=== PATIENT | female | born 1950 | race Caucasian/White ===

== ENCOUNTER 2021-12-18 11:12 | Outpatient (CLI) | payer MEDICARE, SELFPAY ==
--- NOTE | 2021-12-18 11:23 | MM_ITS ---
WS: [id number] VIEWS: MLO and CC views both breasts. 3D digital tomosynthesis is also included in this exam. No comparisons. Findings: There is a 15 mm partially obscured nodular density seen in the anterior medial right breast near the 5:00 position. No architectural distortion or suspicious calcification. This may be a cyst. No other discrete lesions are noted in either breast. Scattered benign-appearing calcifications. Regional ult rasound of the right breast would be indicated for further workup.The breasts are heterogeneously de nse. MM/[place] [id number] Impression: BI-RADS: 0-Incomplete: Need additional imaging evaluation FOLLOW-UP: See Report This mammogram was also analyzed by the Computer Aided Detection System R2 Imag e Fan Balancer.
== END 2021-12-18 11:13 | disposition home or self-care (01) ==
LOC: RAD 11:20
PROVIDERS: Visit Provider Nurse Practitioner
DX: Z12.31 Encounter for screening mammogram for malignant neoplasm of breast (principal)
CPT/HCPCS: 77063; 77067

== ENCOUNTER 2022-01-16 09:56 | Outpatient (CLI) | payer MEDICARE, SELFPAY ==
--- NOTE | 2022-01-16 10:43 | US_ITS ---
WS: [id number] Exam: US breast RT limited* [id number] Date/Time of Exam: 01/16/2022 11:00 AM Reason For Exam: ABNORMAL MAMMOGRAM Regional ultrasound of the subareolar area of the right breast is performed. At the 5:00 position a hypoechoic solid ovoid nodule is noted measuring 1.08 x 0.66 x 0.8 cm. The nod ule is well-circumscribed. This corresponds to the nodular density described on recent baseline mammo graphy. No other discrete lesions are seen in this region. Several mildly dilated ducts noted. US/US breast RT limited* [id number] IMPRESSION: 1. 1.08 x 0.66 x 0.8 cm hypoechoic circumscribed solid nodule seen at the 5:00 position in the right breast. This corresponds to the nodule identified on rece nt baseline mammography. Although this may represent a benign lesion such as a fibroadenoma, ultrasound guided biopsy would be recommended for definitive diag nosis.
== END 2022-01-16 09:57 | disposition home or self-care (01) ==
LOC: RAD 10:03
PROVIDERS: PCP Nurse Practitioner Family; Visit Provider Nurse Practitioner Family
DX: N63.14 Unspecified lump in the right breast, lower inner quadrant (principal); R92.8 Other abnormal and inconclusive findings on diagnostic imaging of breast
CPT/HCPCS: 76642

== ENCOUNTER 2022-02-10 18:30 | Emergency (ER) | payer MEDICARE, SELFPAY ==
[2022-02-10 19:04] VITALS: BP 238/86; PULSE 66; RESP 17; TEMP 36.9; O2SAT 96; BMI 36.6
--- NOTE | 2022-02-10 19:09 | ECG_ITS ---
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 Measurements Intervals [place] Rate: 62 P: 67 NM: 242 QRS: 58 QRSD: 100 T: 47 QT: 408 QTc: 415 Interpretive Statements SINUS RHYTHM WITH FIRST DEGREE AV BLOCK POSSIBLE LEFT ATRIAL ENLARGEMENT [-0.1mV P-WAVE IN V1/V2] POSSIBLE ANTERIOR MYOCARDIAL INFARCTION , OF INDETERMINATE AGE [30 ms Q WAVE IN V3/V4, OR R < 0.2 mV IN V4] No previous ECG available for comparison Electronically Signed On 02-12-2022 18:20:30 ORTHOPEDIC ASSISTANT by Leobardo Montano M.D. [id number]
--- NOTE | 2022-02-10 19:20 | CTR_ITS ---
PROCEDURE INFORMATION: Exam: CT Head Without Contrast Exam date and time: 02/10/2022 7:27 PM Age: 71 years old Clinical indication: Stroke-like symptoms; Headache and visual disturbance; Generalized weakness; Additional info: Symptoms of acute stroke. Lkw yesterday pm TECHNIQUE: Imaging protocol: Computed tomography of the head without contrast. Radiation optimization: All CT scans at this facility use at least one of these dose optimization techniques: automated exposure control; mA and/or kV adjustment per patient size (includes targeted exams where dose is matched to clinical indication); or iterative reconstruction. Other technique: STROKE PROTOCOL was implemented. COMPARISON: No relevant prior studies available. RADIATION DOSE METRICS: Total DLP (mGy-cm): 1133.28 FINDINGS: Brain: Mild brain atrophy is noted. No hemorrhage or evidence of acute infarction. Cerebral ventricles: No ventriculomegaly. Paranasal sinuses: Visualized sinuses are unremarkable. No fluid levels. Mastoid air cells: Visualized mastoid air cells are well aerated. Bones/joints: Unremarkable. No acute fracture. Soft tissues: Unremarkable. CT/CT head thrombolytic [id number] IMPRESSION: No acute intracranial abnormality. ASSESSMENT: ASPECTS ([place] Stroke Program Early CT Score) is 10.
--- NOTE | 2022-02-10 19:20 | XRR_ITS ---
PROCEDURE INFORMATION: Exam: XR Chest Exam date and time: 02/10/2022 8:32 PM Age: 71 years old Clinical indication: Pain; Chest pressure; Additional info: Cp TECHNIQUE: Imaging protocol: Radiologic exam of the chest. Views: 1 view. COMPARISON: No relevant prior studies available. FINDINGS: Lungs: Subsegmental atelectasis versus mild scarring is seen in the left lung base. The lungs are otherwise clear. Pleural spaces: Unremarkable. No pleural effusion. No pneumothorax. Heart/Mediastinum: Unremarkable. No cardiomegaly. Bones/joints: Unremarkable. XR/XR chest 1V portable [id number] IMPRESSION: No acute cardiopulmonary abnormality.
--- NOTE | 2022-02-10 19:27 | W.ED.GENADLT ---
HPI - General Adult General: Chief complaint: General Medical Stated complaint: blurry vison not feeling well Time Seen by Provider: 02/10/22 19:00 Source: patient History of Present Illness: 71-year-old female with a history of hypertension. She presents after having a kaleidoscope type vision changes that lasted for 15 to 30 minutes at home. It seemed to resolve now. She had some chest pressure in the evening before. She had some blurry vision the evening before as well. She has not taken her blood pressure. She does take her blood pressure medicine faithfully. She notes an extreme amount of stress at home, partially related to an abnormal mammogram which she is going to have biopsy done at the beginning of the week. She complains of mild headache and dizziness. Onset (ago): hour(s) Location: head Radiation: other Quality: other Pain Consistency: other Relieving factors: other Associated symptoms: Reports chest pain (Last night none currently), headache(s), nausea and weakness (Generalized); Deny confusion, dyspnea, fevers/chills, seizures, syncope or vomiting Review of Systems Const: Denies: fever(s) or chills Eyes: Reports: change in vision and blurry vision; Denies: blind spots Card: Reports: chest pain (Last night none currently); Denies: syncope Resp: Denies: dyspnea, productive cough or non-productive cough GI: Reports: nausea; Denies: vomiting Musc: Denies: neck pain Neuro: Reports: headache(s) and weakness in extremities (bilateral); Denies: numbness in extremities or confusion Psych: Reports: anxiety Physical Exam Const: COMMON NORMALS: no acute distress and patient oriented x3 GENERAL APPEARANCE: cooperative and anxious; not frail appearing NUTRITIONAL APPEARANCE: obese HENMT: COMMON NORMALS: normocephalic, atraumatic and Normal external nose present HEAD & SCALP: normocephalic and atraumatic FACE & SINUS: normal facial exam and face symmetric NOSE: Normal external nose present Eye: COMMON NORMALS: Equal, round and reactive pupils present and EOMs intact bilaterally PUPIL: Yes Equal, round and reactive pupils present Neck/C-Spine: GENERAL: Yes trachea midline Chest: CHEST: Yes Symmetrical chest wall rise Resp: COMMON NORMALS: normal respiratory effort, No retractions, No use of accessory muscles and clear to auscultation bilaterally AUSCULTATION: clear to auscultation bilaterally Cardio: COMMON NORMALS: regular rate and regular rhythm RATE: regular rate RHYTHM: regular rhythm GI: COMMON NORMALS: Normal to inspection, nondistended, normoactive bowel sounds present Extremity: COMMON NORMALS: no pedal edema Neuro: ANTHONY COMA SCALE: document GCS findings [place] coma scale eye opening: Spontaneous [place] coma scale verbal response: Orientated [place] coma scale motor response: Obey commands Anthony coma scale total score: 15 COMMON NORMALS: patient oriented x3 CRANIAL NERVES: Yes CN normal except as noted COORDINATION/BALANCE: tpmurq-qo-itiz test normal and rqvu-jn-xgsf test normal SPEECH: speech normal SENSORY EXAM: Yes extremities (intact) MOTOR EXAM: Pronator motor function not present and Normal motor muscle tone present throughout COORDINATION: hevsxt-yy-tqst test normal and axji-nj-ugcr test normal Psych: COMMON NORMALS: cooperative and speech normal SPEECH: Yes normal speech Skin: COMMON NORMALS: no rashes or lesions noted GENERAL SKIN EXAM: no rashes or lesions noted Course Vital Signs: Vital signs: Vital Signs Temperature 98.4 F 02/10/22 19:04 Pulse Rate 61 02/10/22 22:06 Respiratory Rate 21 H 02/10/22 22:06 Blood Pressure 133/56 02/10/22 22:06 Pulse Oximetry 94 02/10/22 22:06 Oxygen Delivery Me thod 02/10/22 20:53 [facility] - General Adult Medical Decision Making 71-year-old female with essentially resolved neurological symptoms. She was quite hypertensive on arrival. Current blood pressure 133/56, sinus rhythm at 60. Sats 96% on room air and respirations 19. EKG shows sinus rhythm with first-degree AV block. No acute ST changes. Normal axis. Rate is 60. Head CT is negative, chest x-ray is negative. BMP is not remarkable. CBC is not remarkable. Troponin is 6. Urinalysis and urine drug screen are negative. Lab Data 02/10/22 19:15 02/10/22 19:15 Radiology Impressions Chest X-Ray 02/10/22 19:20 IMPRESSION: No acute cardiopulmonary abnormality. Head CT 02/10/22 19:20 IMPRESSION: No acute intracranial abnormality. ASSESSMENT: ASPECTS ([place] Stroke Program Early CT Score) is 10. Laboratory Results WBC 9.9 10^3/uL (4.0-10.0) 02/10/22 19:15 RBC 5.47 10^6/uL (4.1-5.3) H 02/10/22 19:15 Hgb 16.6 g/dL (11.5-15.3) H 02/10/22 19:15 Hct 50.2 % (37.0-47.0) H 02/10/22 19:15 MCV 91.8 fl (81-99) 02/10/22 19:15 MCH 30.3 pg (28.0-34.0) 02/10/22 19:15 MCHC 33.1 g/dL (30.0-36.0) 02/10/22 19:15 RDW 12.7 % (12.1-15.1) 02/10/22 19:15 Plt Count 146 10^3/cmm (130-400) 02/10/22 19:15 MPV 12.9 fL (7.4-10.4) H 02/10/22 19:15 Neut % (Auto) 68.6 % 02/10/22 19:15 Lymph % (Auto) 20.0 % 02/10/22 19:15 [place] % (Auto) 7.8 % 02/10/22 19:15 Eos % (Auto) 2.4 % 02/10/22 19:15 Baso % (Auto) 0.7 % 02/10/22 19:15 Neut # (Auto) 6.78 10^3/uL (1.8-7.7) 02/10/22 19:15 Lymph # (Auto) 2.0 10^3/uL (0.8-4.8) 02/10/22 19:15 [place] # (Auto) 0.8 10^3/uL (0.2-0.9) 02/10/22 19:15 Eos # (Auto) 0.2 10^3/uL (0.0-0.8) 02/10/22 19:15 Baso # (Auto) 0.1 10^3/uL (0.0-0.1) 02/10/22 19:15 Nucleated RBC % (auto) 0 % 02/10/22 19:15 Nucleated RBCs # 0.0 /100WBC 02/10/22 19:15 PT 13.10 SECONDS (12.1-14.9) 02/10/22 19:15 INR 0.97 (0.8-1.2) 02/10/22 19:15 APTT 30.8 SECONDS (23.9-36.7) 02/10/22 19:15 Sodium 132 mmol/L (136-145) L 02/10/22 19:15 Potassium 3.5 mmol/L (3.5-5.1) 02/10/22 19:15 Chloride 94 mmol/L (98-107) L 02/10/22 19:15 Carbon Dioxide 30 mmol/L (22-29) H 02/10/22 19:15 Anion Gap 11.5 (5-19) 02/10/22 19:15 BUN 12 mg/dL (8-23) 02/10/22 19:15 Creatinine 0.4 mg/dL (0.5-0.9) L 02/10/22 19:15 GFR Calculation 158.3 mL/min (90-130) H 02/10/22 19:15 Glucose 112 mg/dL (65-115) 02/10/22 19:15 Calculated Osmolality 275 mOsm/kg (285-295) L 02/10/22 19:15 Calcium 11.6 mg/dL (8.5-10.5) H 02/10/22 19:15 Total Bilirubin 0.5 mg/dL (0.15-1.2) 02/10/22 19:15 AST 16 U/L (0-32) 02/10/22 19:15 ALT 15 U/L (0-33) 02/10/22 19:15 Alkaline Phosphatase 136 U/L (35-105) H 02/10/22 19:15 Troponin T Baseline 6 ng/L (0-10) 02/10/22 19:15 Troponin T 120 Minute 6.00 ng/L (0-10) 02/10/22 21:15 Delta Troponin T 0 ABS# (0-10) 02/10/22 21:15 Total Protein 7.3 g/dL (6.6-8.7) 02/10/22 19:15 Albumin 4.4 g/dL (3.5-5.2) 02/10/22 19:15 Globulin 2.9 g/dL (1.3-4.6) 02/10/22 19:15 Urine Color Yellow (Yellow) 02/10/22 19:40 Urine Appearance Clear (CLEAR) 02/10/22 19:40 Urine pH 7 (5-7) 02/10/22 19:40 Ur Specific [place] 1.010 (1.005-1.030) 02/10/22 19:40 Urine Protein Neg (Negative) 02/10/22 19:40 Urine Glucose (UA) Norm (Normal) 02/10/22 19:40 Urine Ketones Negative (Negative) 02/10/22 19:40 Urine Blood Neg (Negative) 02/10/22 19:40 Urine Nitrate Negative (Negative) 02/10/22 19:40 Urine Bilirubin Neg (Negative) 02/10/22 19:40 Urine Urobilinogen Neg mg/dL (Negative) 02/10/22 19:40 Ur Leukocyte Esterase 1+ (Negative) H 02/10/22 19:40 Urine RBC 0-4 /hpf (0-2) H 02/10/22 19:40 Urine WBC 10-15 /hpf (0-5) H 02/10/22 19:40 Ur Squamous Epith Cells 0-4 /hpf (0-5) H 02/10/22 19:40 Amorphous Sediment Not Reportable 02/10/22 19:40 Urine Bacteria Trace /hpf (NONE) 02/10/22 19:40 Urine Opiates Screen Negative ng/mL (Negative) 02/10/22 19:40 Ur Barbiturates Screen Negative ng/mL (Negative) 02/10/22 19:40 Ur Phencyclidine Scrn Negative ng/mL (Negative) 02/10/22 19:40 Ur Amphetamines Screen Negative ng/mL (Negative) 02/10/22 19:40 U Benzodiazepines Scrn Negative ng/mL (Negative) 02/10/22 19:40 Urine Cocaine Screen Negative ng/mL (Negative) 02/10/22 19:40 U Marijuana (THC) Screen Negative ng/mL (Negative) 02/10/22 19:40 Discharge Plan Discharge Patient Disposition: Home Clinical Impression: Hypertensive urgency Condition: Stable Prescriptions: New amlodipine 10 mg tablet 10 mg PO DAILY Qty: 30 0RF Discharge Orders: Discharge ED (Routine); Ordered 02/10/22 Ordered By: Billy Esparza Referrals: Mercado,Eugenia EQUIPMENT WASHER [Primary Care Provider] - Patient Instructions: Hypertension (ED) Activity Restrictions/Additional Instructions: Check your blood pressure twice daily and report numbers to your physician. If the top number is staying above 150, take the medication you were prescribed. Return for any weakness, visual changes, language problems, chest discomfort, any other concerning symptoms. Follow-up with your doctor next week. Coding Level of Care Code ED Supervisor [employer] for Annie Fwd Exam Comprehensive
[2022-02-10 19:33] LABS: Basophils # 0.1 10^3/uL (0.0-0.1); Basophils % 0.7 %; Eosinophils # 0.2 10^3/uL (0.0-0.8); Eosinophils % 2.4 %; Hematocrit 50.2 % (37.0-47.0); Hemoglobin 16.6 g/dL (11.5-15.3); Mean Corpuscular HGB Conc 33.1 g/dL (30.0-36.0); Mean Corpuscular Hemoglobin 30.3 pg (28.0-34.0); Mean Corpuscular Volume 91.8 fl (81-99); Mean Platelet Volume 12.9 fL (7.4-10.4); Monocytes # 0.8 10^3/uL (0.2-0.9); Monocytes % 7.8 %; Neutrophils # 6.78 10^3/uL (1.8-7.7); Neutrophils % 68.6 %; Nucleated Red Blood Cells % 0 %; Platelet Count 146 10^3/cmm (130-400); Red Blood Count 5.47 10^6/uL (4.1-5.3); Red Cell Distribution Width 12.7 % (12.1-15.1); White Blood Count 9.9 10^3/uL (4.0-10.0)
[2022-02-10 19:41] LABS: INR 0.97 (0.8-1.2)
[2022-02-10 19:42] LABS: Partial Thromboplastin Time 30.8 SECONDS (23.9-36.7)
[2022-02-10] MEDS: amlodipine 10 mg Tablet PO (19:43)
[2022-02-10 19:47] LABS: Alanine Aminotransferase 15 U/L (0-33); Albumin Level 4.4 g/dL (3.5-5.2); Alkaline Phosphatase 136 U/L (35-105); Aspartate Amino Transferase 16 U/L (0-32); Blood Urea Nitrogen 12 mg/dL (8-23); Calcium 11.6 mg/dL (8.5-10.5); Carbon Dioxide 30 mmol/L (22-29); Chloride 94 mmol/L (98-107); Globulin 2.9 g/dL (1.3-4.6); Glomerular Filtration Rate 158.3 mL/min (90-130); Glucose 112 mg/dL (65-115); Osmolality Calculated 275 mOsm/kg (285-295); Sodium 132 mmol/L (136-145); Total Bilirubin 0.5 mg/dL (0.15-1.2); Total Protein 7.3 g/dL (6.6-8.7)
[2022-02-10 19:48] LABS: Troponin(5th) Baseline 6 ng/L (0-10)
[2022-02-10 19:56] LABS: Anion Gap 11.5 (5-19); Potassium 3.5 mmol/L (3.5-5.1)
[2022-02-10 20:16] LABS: Amphetamines Screen Urine Negative (Negative); Barbiturates Screen Urine Negative (Negative); Benzodiazepines Screen Urine Negative (Negative); Cocaine Screen Urine Negative (Negative); Opiate Screen Urine Negative (Negative); PCP Screen Urine Negative (Negative); THC Screen Urine Negative (Negative)
[2022-02-10 20:19] LABS: Add Urine Microscopic? YES; Bilirubin Urine Neg (Negative); Blood Urine Neg (Negative); Glucose Urine UA Norm (Normal); Ketones Urine Negative (Negative); Leukocyte Esterase Urine 1+ (Negative); Nitrate Urine Negative (Negative); Protein Urine Neg (Negative); Urine Appearance Clear (CLEAR); Urine Color Yellow (Yellow); Urobilinogen Urine Neg (Negative); pH Urine 7 (5-7)
[2022-02-10 20:22] LABS: Add Urine Culture? Yes; Bacteria Urine TRACE /hpf; RBC Urine 0-4 /hpf (0-2); Squamous Epithelial Cell Urine 0-4 /hpf (0-5)
[2022-02-10] MEDS: enalaprilat 1.25 mg/mL Inj IVP (20:50)
[2022-02-10 20:53] VITALS: BP 184/70; PULSE 64; RESP 26; O2SAT 96
--- NOTE | 2022-02-10 21:21 | ECG_ITS ---
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 Measurements Intervals [place] Rate: 63 P: 55 [place]: 238 QRS: 54 QRSD: 99 T: 4 QT: 418 QTc: 428 Interpretive Statements SINUS RHYTHM WITH FIRST DEGREE AV BLOCK POSSIBLE ANTERIOR MYOCARDIAL INFARCTION , OF INDETERMINATE AGE [30 ms Q WAVE IN V3/V4, OR R < 0.2 mV IN V4] No previous ECG available for comparison Electronically Signed On 02-12-2022 18:29:50 SATELLITE TECHNICIAN by Leobardo Montano M.D. [id number]
[2022-02-10 21:30] VITALS: BP 156/50; PULSE 60; RESP 12; O2SAT 94
--- NOTE | 2022-02-10 21:54 | PC.NURSE ---
patient ambulated with steady gait approx 50 ft without dizziness.
[2022-02-10 22:06] VITALS: BP 133/56; PULSE 61; RESP 21; O2SAT 94
[2022-02-10 22:09] LABS: Troponin 5 2HR Delta 0 ABS# (0-10)
== END 2022-02-10 22:03 | disposition home or self-care (01) ==
PROVIDERS: Emergency Provider Emergency Medicine; PCP Nurse Practitioner Family
DX: I16.0 Hypertensive urgency (principal)
CPT/HCPCS: 70450; 71045; 80053; 80306; 81001; 84484; 85025; 85610; 85730; 87086; 93005; 96374; 99285; J3490

== ENCOUNTER 2022-02-13 08:15 | Outpatient (CLI) | payer MEDICARE, SELFPAY ==
--- NOTE | 2022-02-13 08:20 | US_ITS ---
WS: [id number] ULTRASOUND-GUIDED RIGHT BREAST BIOPSY CLINICAL INFORMATION: ABNORMAL MAMMO FINDINGS: The procedure including risks, benefits, and complications were discussed with the patient who agreed to proceed. Using sterile technique patient was prepped and draped in the usual sterile fashion. Aft er 1% lidocaine utilizing real-time ultrasound guidance 3 14-gauge cores were obtained of the RIGHT b reast lesion at the 5 o'clock position. Subsequently a titanium clip was placed in the biopsy cavity. No immediate complications. Pathology demonstrates A. Breast, right, 5 o'clock, areola, ultrasound-guided biopsy: - Mucinous carcinoma; colloid carcinoma. - Barrientos Santos score 3, grade 1. US/[place] [id number] IMPRESSION: 1. Uncomplicated ultrasound-guided RIGHT breast biopsy. 2. The pathology demonstrates mucinous carcinoma; colloid carcinoma. 3. Breast cancer prognostic profile pending. BI-RADS: 6-Known Biopsy-Proven Malignancy FOLLOW UP: Surgical Biopsy Recommended Recommend breast surgery and oncology consultation. Notified RANDA HOLT at Dr. Riley's office 02/26/2022 9:12 AM.
[2022-02-19 15:14] LABS: Breast Profile ER,PR,HER2,Ki-6 See Report
== END 2022-02-13 08:16 | disposition home or self-care (01) ==
LOC: RAD 08:16
PROVIDERS: PCP Nurse Practitioner Family; Visit Provider Family Medicine
DX: C50.311 Malignant neoplasm of lower-inner quadrant of right female breast (principal)
CPT/HCPCS: 19083; 88305; 88361; 88374

== ENCOUNTER 2022-07-16 12:36 | Oncology outpatient (recurring) (ONCR) | payer MEDICARE, SELFPAY ==
--- NOTE | 2022-07-16 13:16 | N.ONRAD NP_ITS ---
Radiation Oncology Consultation Patient Name: Kathleen Bernal Date of : 1950 Date of Service: 07/16/2022 Attending Physician: Aaron Harvey M.D. Kathleen Bernal was seen in consultation this afternoon at the request of Garo Torres M.D. for consideration of adjuvant breast radiotherapy for the management of a recently diagnosed breast cancer. A screening mammogram (independently reviewed in [facility]) ordered on December 18, 2021 a 1.5 cm nodular density in the right breast. Ultrasonography obtained on January 16, 2022 confirmed a hypoechoic lesion at the 5 o'clock position measuring 1.1 cm x 0.6 cm x 0.8 cm An ultrasound-guided core biopsy completed on February 13, 2022 diagnosed a grade 1 mucinous carcinoma. The breast cancer prognostic profile revealed estrogen receptor positivity (100 %) and progesterone receptor positivity (99%) while negative for HER2 (0+ by IHC; HER2 ratio 1). The Ki-67 was 4%. A left needle localized right lumpectomy and sentinel lymph node biopsy was performed by Paco Dejesus M.D. on May 04, 2022. The pathology report (personally reviewed in [facility]) confirmed a 6 mm, grade 1 mucinous carcinoma. A positive medial margin was present for invasive ductal carcinoma. The sentinel lymph node biopsy harvested 1 benign lymph node. A re-excision was performed in May 22, 2022. The specimen demonstrated foreign body giant cells without residual carcinoma. I discussed the [place] [employer] on Cancer Staging for breast cancer and specifically the patient's pathologic stage IA (T1bN0) breast cancer, I summarized the randomized CALGB 9343 and the PRIME II trials published in The [employer] Journal of Medicine, that demonstrated the addition of radiotherapy to endocrine therapy improved local control compared to endocrine therapy alone without an overall survival advantage. If the patient elects to have treatment, I would recommend a three week course of hypofractionated radiotherapy to the breast. Prior to beginning treatment, a computed tomographic radiotherapy planning scan in the treatment position will be performed to identify the clinical tumor volume. The potential toxicities of adjuvant breast radiotherapy were recounted. The patient has verbalized understanding and would like to proceed as recommended. The patient's medical treatment was discussed with Paco Dejesus M.D. Signed by: Aaron Harvey 07/16/2022 1:21:14 PM
== END 2022-07-22 23:59 | disposition home or self-care (01) ==
PROVIDERS: PCP Nurse Practitioner Family; Visit Provider Internal Medicine Medical Oncology
DX: C50.111 Malignant neoplasm of central portion of right female breast (principal); Z17.0 Estrogen receptor positive status [ER+]; Z90.11 Acquired absence of right breast and nipple; Z80.8 Family history of malignant neoplasm of other organs or systems
CPT/HCPCS: 99205

== ENCOUNTER 2022-08-17 11:42 | Outpatient (CLI) | payer MEDICARE, SELFPAY ==
--- NOTE | 2022-08-17 15:30 | XR_ITS ---
WS: [id number] SCREENING DEXA SCAN [employer] CLINICAL INFORMATION: postmenopausal COMPARISON: None. FINDINGS: The L1-L4 bone mineral density measures 0.925 g/cm2. This corresponds to a T score score of -2.1 and Z score of -1.6. Left femoral neck bone mineral density measures 0.885 g/cm2. This corresponds to a T score of -1.0 an d Z score of -0.4. Right femoral neck bone mineral density measures 0.907 g/cm2. This corresponds to a T score -0.8of an d Z score of -0.2. Mean femoral neck bone mineral density measures 0.896 g/cm2. This corresponds to a T score of -0.9 an d Z score of -0.3. XR/XR DEXA axial skeleton* 59985 IMPRESSION: Osteopenia lumbar spine. Osteopenia femoral necks at the lower end of the range Patient's FRAX calculated 10 year probability for major osteoporotic fracture i s 11.8 % and osteoporotic hip fracture is 2.4%.
== END 2022-08-17 11:43 | disposition home or self-care (01) ==
LOC: RAD 11:43
PROVIDERS: PCP Nurse Practitioner Family; Visit Provider Internal Medicine Medical Oncology
DX: M85.852 Other specified disorders of bone density and structure, left thigh (principal); M85.88 Other specified disorders of bone density and structure, other site; N95.9 Unspecified menopausal and perimenopausal disorder
CPT/HCPCS: 77080

== ENCOUNTER 2022-08-17 11:43 | Oncology outpatient (recurring) (ONCR) | payer MEDICARE, SELFPAY ==
[2022-08-17 12:00] VITALS: BP 150/82; PULSE 56; RESP 18; TEMP 37.2; O2SAT 97
== END 2022-08-22 23:59 | disposition home or self-care (01) ==
PROVIDERS: PCP Nurse Practitioner Family; Visit Provider Internal Medicine Medical Oncology
DX: Z01.89 Encounter for other specified special examinations (principal)
CPT/HCPCS: 36415

== ENCOUNTER 2022-11-27 09:28 | Oncology outpatient (recurring) (ONCR) | payer MEDICARE, SELFPAY ==
[2022-11-27 10:17] LABS: Basophils % 0.6 %; Eosinophils # 0.2 10^3/uL (0.0-0.8); Eosinophils % 2.9 %; Lymphocytes # 1.5 10^3/uL (0.8-4.8); Lymphocytes % 22.3 %; Mean Corpuscular HGB Conc 32.8 g/dL (30-55); Mean Corpuscular Volume 91.4 fl (85-98); Mean Platelet Volume 12.5 fL (7.4-10.4); Monocytes # 0.4 10^3/uL (0.2-0.9); Monocytes % 6.1 %; Neutrophils # 4.49 10^3/uL (1.8-7.7); Neutrophils % 67.9 %; Nucleated Red Blood Cells % 0 %; Platelet Count 136 10^3/cmm (157-399); Red Blood Count 5.14 10^6/uL (3.85-5.65)
[2022-11-27 10:34] LABS: Alanine Aminotransferase 17 U/L (0-33); Albumin Level 4.3 g/dL (3.5-5.2); Alkaline Phosphatase 106 U/L (35-105); Aspartate Amino Transferase 15 U/L (0-32); Blood Urea Nitrogen 13 mg/dL (8-23); Calcium 10.3 mg/dL (8.5-10.5); Carbon Dioxide 28 mmol/L (22-29); Chloride 106 mmol/L (98-107); Globulin 2.6 g/dL (1.3-4.6); Glomerular Filtration Rate 122.3 mL/min (90-130); Glucose 121 mg/dL (65-115); Osmolality Calculated 291 mOsm/kg (285-295); Sodium 140 mmol/L (136-145); Total Bilirubin 0.5 mg/dL (0.15-1.2); Total Protein 6.9 g/dL (6.6-8.7)
[2022-11-27 10:50] LABS: 25 Hydroxy Vitamin D 28 ng/mL (30-100)
== END 2022-12-22 23:59 | disposition home or self-care (01) ==
PROVIDERS: PCP Nurse Practitioner Family; Visit Provider Internal Medicine Medical Oncology
DX: Z17.0 Estrogen receptor positive status [ER+] (principal); Z79.811 Long term (current) use of aromatase inhibitors; C50.111 Malignant neoplasm of central portion of right female breast
CPT/HCPCS: 36415; 80053; 82306; 85025; 99214

== ENCOUNTER 2023-04-29 13:37 | Oncology outpatient (recurring) (ONCR) | payer MEDICARE, SELFPAY ==
[2023-04-29 16:05] LABS: Basophils # 0.1 10^3/uL (0.0-0.1); Basophils % 0.6 %; Eosinophils # 0.2 10^3/uL (0.0-0.8); Hematocrit 48.9 % (36-47); Lymphocytes # 1.8 10^3/uL (0.8-4.8); Lymphocytes % 19.6 %; Mean Corpuscular HGB Conc 33.1 g/dL (30-55); Mean Corpuscular Hemoglobin 30.3 pg (27-33); Mean Corpuscular Volume 91.4 fl (85-98); Monocytes # 0.6 10^3/uL (0.2-0.9); Neutrophils # 6.28 10^3/uL (1.8-7.7); Neutrophils % 70.5 %; Nucleated Red Blood Cells % 0 %; Platelet Count 168 10^3/cmm (157-399); Red Blood Count 5.35 10^6/uL (3.85-5.65); Red Cell Distribution Width 12.9 % (12.1-15.1); White Blood Count 8.91 10^3/uL (3.29-11.43)
[2023-04-29 16:29] LABS: Alanine Aminotransferase 17 U/L (0-33); Albumin Level 4.4 g/dL (3.5-5.2); Alkaline Phosphatase 159 U/L (35-105); Anion Gap 11.1 (5-19); Aspartate Amino Transferase 14 U/L (0-32); Blood Urea Nitrogen 11 mg/dL (8-23); Calcium 11.2 mg/dL (8.5-10.5); Carbon Dioxide 30 mmol/L (22-29); Chloride 102 mmol/L (98-107); Creatinine Clr Calc Pharmacy 77.9198; Globulin 3.1 g/dL (1.3-4.6); Glucose 133 mg/dL (65-115); Osmolality Calculated 289 mOsm/kg (285-295); Potassium 4.1 mmol/L (3.5-5.1); Sodium 139 mmol/L (136-145); Total Bilirubin 0.5 mg/dL (0.15-1.2); Total Protein 7.5 g/dL (6.6-8.7)
[2023-04-29 16:41] LABS: 25 Hydroxy Vitamin D 20 ng/mL (30-100)
== END 2023-05-23 23:59 | disposition home or self-care (01) ==
PROVIDERS: Nurse Practitioner Family; PCP Nurse Practitioner Family; Visit Provider Internal Medicine Medical Oncology
DX: C50.111 Malignant neoplasm of central portion of right female breast (principal); Z17.0 Estrogen receptor positive status [ER+]; R10.9 Unspecified abdominal pain; Z79.811 Long term (current) use of aromatase inhibitors; M85.80 Other specified disorders of bone density and structure, unspecified site; F32.A Depression, unspecified; E55.9 Vitamin D deficiency, unspecified
CPT/HCPCS: 36415; 80053; 82306; 85025; 99214

== ENCOUNTER 2023-08-08 10:51 | Oncology outpatient (recurring) (ONCR) | payer MEDICARE, SELFPAY ==
[2023-08-08 11:09] LABS: Basophils # 0.1 10^3/uL (0.0-0.1); Basophils % 0.7 %; Eosinophils # 0.2 10^3/uL (0.0-0.8); Eosinophils % 2.2 %; Hematocrit 50.1 % (36-47); Lymphocytes # 1.6 10^3/uL (0.8-4.8); Lymphocytes % 23.9 %; Mean Corpuscular HGB Conc 32.9 g/dL (30-55); Mean Corpuscular Hemoglobin 30.1 pg (27-33); Mean Corpuscular Volume 91.4 fl (85-98); Mean Platelet Volume 12.2 fL (7.4-10.4); Monocytes # 0.5 10^3/uL (0.2-0.9); Monocytes % 7.4 %; Neutrophils # 4.49 10^3/uL (1.8-7.7); Neutrophils % 65.5 %; Nucleated Red Blood Cells % 0 %; Platelet Count 145 10^3/cmm (157-399); Red Blood Count 5.48 10^6/uL (3.85-5.65); Red Cell Distribution Width 12.9 % (12.1-15.1); White Blood Count 6.86 10^3/uL (3.29-11.43)
[2023-08-08 11:27] LABS: Alanine Aminotransferase 21 U/L (0-33); Albumin Level 4.3 g/dL (3.5-5.2); Alkaline Phosphatase 147 U/L (35-105); Anion Gap 11.2 (5-19); Aspartate Amino Transferase 17 U/L (0-32); Blood Urea Nitrogen 13 mg/dL (8-23); Calcium 10.3 mg/dL (8.5-10.5); Carbon Dioxide 28 mmol/L (22-29); Chloride 105 mmol/L (98-107); Globulin 2.9 g/dL (1.3-4.6); Glomerular Filtration Rate 157.8 mL/min (90-130); Glucose 125 mg/dL (65-115); Osmolality Calculated 292 mOsm/kg (285-295); Potassium 4.2 mmol/L (3.5-5.1); Sodium 140 mmol/L (136-145); Total Bilirubin 0.4 mg/dL (0.15-1.2); Total Protein 7.2 g/dL (6.6-8.7)
[2023-08-08 11:43] LABS: 25 Hydroxy Vitamin D 30 ng/mL (30-100)
== END 2023-08-23 23:59 | disposition home or self-care (01) ==
PROVIDERS: Nurse Practitioner Family; PCP Nurse Practitioner Family; Visit Provider Internal Medicine Medical Oncology
DX: C50.111 Malignant neoplasm of central portion of right female breast (principal); Z17.0 Estrogen receptor positive status [ER+]; Z79.811 Long term (current) use of aromatase inhibitors; M85.80 Other specified disorders of bone density and structure, unspecified site; F32.A Depression, unspecified; E55.9 Vitamin D deficiency, unspecified
CPT/HCPCS: 36415; 80053; 82306; 85025; 99214

== ENCOUNTER 2023-12-19 09:38 | Oncology outpatient (recurring) (ONCR) | payer MEDICARE, SELFPAY ==
[2023-12-19 09:55] LABS: Basophils % 0.5 %; Eosinophils # 0.2 10^3/uL (0.0-0.8); Eosinophils % 2.3 %; Hematocrit 49.1 % (36-47); Lymphocytes # 1.4 10^3/uL (0.8-4.8); Lymphocytes % 22.4 %; Mean Corpuscular HGB Conc 32.8 g/dL (30-55); Mean Corpuscular Hemoglobin 30.3 pg (27-33); Mean Corpuscular Volume 92.3 fl (85-98); Mean Platelet Volume 12.2 fL (7.4-10.4); Monocytes # 0.5 10^3/uL (0.2-0.9); Monocytes % 8.2 %; Neutrophils # 4.25 10^3/uL (1.8-7.7); Neutrophils % 66.1 %; Nucleated Red Blood Cells % 0 %; Platelet Count 134 10^3/cmm (157-399); Red Blood Count 5.32 10^6/uL (3.85-5.65); Red Cell Distribution Width 13.1 % (12.1-15.1); White Blood Count 6.43 10^3/uL (3.29-11.43)
[2023-12-19 10:34] LABS: 25 Hydroxy Vitamin D 34 ng/mL (30-100); Alanine Aminotransferase 18 U/L (0-33); Albumin Level 4.2 g/dL (3.5-5.2); Alkaline Phosphatase 141 U/L (35-105); Aspartate Amino Transferase 16 U/L (0-32); Blood Urea Nitrogen 12 mg/dL (8-23); Calcium 10.7 mg/dL (8.5-10.5); Carbon Dioxide 28 mmol/L (22-29); Chloride 105 mmol/L (98-107); Globulin 2.9 g/dL (1.3-4.6); Glucose 125 mg/dL (65-115); Osmolality Calculated 291 mOsm/kg (285-295); Sodium 140 mmol/L (136-145); Total Bilirubin 0.4 mg/dL (0.15-1.2); Total Protein 7.1 g/dL (6.6-8.7)
== END 2023-12-23 23:59 | disposition home or self-care (01) ==
PROVIDERS: Nurse Practitioner Family; PCP Nurse Practitioner Family; Visit Provider Internal Medicine Medical Oncology
DX: Z53.9 Procedure and treatment not carried out, unspecified reason (principal); C50.111 Malignant neoplasm of central portion of right female breast; M85.80 Other specified disorders of bone density and structure, unspecified site
CPT/HCPCS: 36415; 80053; 82306; 85025; 99214

== ENCOUNTER 2024-06-18 12:48 | Oncology outpatient (recurring) (ONCR) | payer MEDICARE, SELFPAY ==
[2024-06-18 13:21] LABS: Basophils # 0.1 10^3/uL (0.0-0.1); Basophils % 0.6 %; Eosinophils # 0.2 10^3/uL (0.0-0.8); Hematocrit 48.2 % (36-47); Lymphocytes # 1.8 10^3/uL (0.8-4.8); Lymphocytes % 19.8 %; Mean Corpuscular Hemoglobin 29.9 pg (27-33); Mean Corpuscular Volume 90.8 fl (85-98); Mean Platelet Volume 12.5 fL (7.4-10.4); Monocytes # 0.6 10^3/uL (0.2-0.9); Monocytes % 7.2 %; Neutrophils % 70.1 %; Nucleated Red Blood Cells % 0 %; Platelet Count 152 10^3/cmm (157-399); Red Blood Count 5.31 10^6/uL (3.85-5.65); Red Cell Distribution Width 13.1 % (12.1-15.1); White Blood Count 8.85 10^3/uL (3.29-11.43)
[2024-06-18 13:38] LABS: Alanine Aminotransferase 19 U/L (0-33); Albumin Level 4.5 g/dL (3.5-5.2); Alkaline Phosphatase 126 U/L (35-105); Anion Gap 11.9 (5-19); Aspartate Amino Transferase 15 U/L (0-32); Blood Urea Nitrogen 12 mg/dL (8-23); Carbon Dioxide 28 mmol/L (22-29); Chloride 105 mmol/L (98-107); Creatinine Clr Calc Pharmacy 76.0214; Globulin 2.6 g/dL (1.3-4.6); Glucose 125 mg/dL (65-115); Osmolality Calculated 293 mOsm/kg (285-295); Potassium 3.9 mmol/L (3.5-5.1); Sodium 141 mmol/L (136-145); Total Bilirubin 0.5 mg/dL (0.15-1.2); Total Protein 7.1 g/dL (6.6-8.7)
== END 2024-06-22 23:59 | disposition home or self-care (01) ==
PROVIDERS: Nurse Practitioner Family; PCP Nurse Practitioner Family; Visit Provider Internal Medicine
DX: C50.111 Malignant neoplasm of central portion of right female breast (principal); Z17.0 Estrogen receptor positive status [ER+]; Z85.42 Personal history of malignant neoplasm of other parts of uterus; M85.80 Other specified disorders of bone density and structure, unspecified site; Z79.811 Long term (current) use of aromatase inhibitors
CPT/HCPCS: 36415; 80053; 85025; 99213

== ENCOUNTER 2024-07-30 08:21 | Oncology outpatient (recurring) (ONCR) | payer MEDICARE, SELFPAY ==
[2024-07-30 08:54] LABS: Basophils % 0.7 %; Eosinophils # 0.2 10^3/uL (0.0-0.8); Hematocrit 48.4 % (36-47); Lymphocytes # 1.2 10^3/uL (0.8-4.8); Lymphocytes % 19.5 %; Mean Corpuscular HGB Conc 32.2 g/dL (30-55); Mean Corpuscular Volume 93.1 fl (85-98); Mean Platelet Volume 12.2 fL (7.4-10.4); Monocytes # 0.4 10^3/uL (0.2-0.9); Monocytes % 6.7 %; Neutrophils # 4.18 10^3/uL (1.8-7.7); Neutrophils % 69.8 %; Nucleated Red Blood Cells % 0 %; Platelet Count 147 10^3/cmm (157-399); White Blood Count 5.99 10^3/uL (3.29-11.43)
[2024-07-30 08:59] LABS: Erythrocyte Sedimentation Rate 3 mm/hr (0-15)
[2024-07-30 09:12] LABS: Alanine Aminotransferase 16 U/L (0-33); Albumin Level 4.3 g/dL (3.5-5.2); Alkaline Phosphatase 128 U/L (35-105); Aspartate Amino Transferase 17 U/L (0-32); Blood Urea Nitrogen 15 mg/dL (8-23); C Reactive Protein 5.3 mg/L (0.0-4.9); Calcium 10.6 mg/dL (8.5-10.5); Carbon Dioxide 30 mmol/L (22-29); Chloride 106 mmol/L (98-107); Globulin 2.9 g/dL (1.3-4.6); Glucose 120 mg/dL (65-115); Osmolality Calculated 298 mOsm/kg (285-295); Sodium 143 mmol/L (136-145); Total Bilirubin 0.6 mg/dL (0.15-1.2); Total Protein 7.2 g/dL (6.6-8.7)
[2024-07-30 09:19] LABS: Anion Gap 11.5 (5-19); Lactate Dehydrogenase 176 U/L (135-214); Potassium 4.5 mmol/L (3.5-5.1)
== END 2024-08-22 23:59 | disposition home or self-care (01) ==
PROVIDERS: PCP Nurse Practitioner Family; Visit Provider Internal Medicine
DX: C50.111 Malignant neoplasm of central portion of right female breast (principal); E55.9 Vitamin D deficiency, unspecified
CPT/HCPCS: 36415; 80053; 83615; 85025; 85651; 86140; 99214

== ENCOUNTER → 2024-08-18 10:24 | Outpatient (BNVA) | payer MEDICARE, SELFPAY | PROVIDERS: PCP Nurse Practitioner Family; Visit Provider Surgery | DX: Z12.11 Encounter for screening for malignant neoplasm of colon (principal) | CPT/HCPCS: 99024; 99204 ==

== ENCOUNTER 2024-08-27 10:20 | Oncology outpatient (recurring) (ONCR) | payer MEDICARE, SELFPAY ==
[2024-08-27 10:35] LABS: Basophils # 0.1 10^3/uL (0.0-0.1); Basophils % 0.7 %; Eosinophils # 0.2 10^3/uL (0.0-0.8); Hematocrit 47.4 % (36-47); Lymphocytes # 1.3 10^3/uL (0.8-4.8); Mean Corpuscular HGB Conc 32.9 g/dL (30-55); Mean Corpuscular Hemoglobin 30.3 pg (27-33); Monocytes # 0.4 10^3/uL (0.2-0.9); Monocytes % 5.7 %; Neutrophils % 73.2 %; Nucleated Red Blood Cells % 0 %; Platelet Count 169 10^3/cmm (157-399); Red Blood Count 5.15 10^6/uL (3.85-5.65); Red Cell Distribution Width 12.7 % (12.1-15.1); White Blood Count 7.38 10^3/uL (3.29-11.43)
[2024-08-27 10:54] LABS: Alanine Aminotransferase 16 U/L (0-33); Albumin Level 4.2 g/dL (3.5-5.2); Alkaline Phosphatase 106 U/L (35-105); Anion Gap 11.2 (5-19); Aspartate Amino Transferase 18 U/L (0-32); Blood Urea Nitrogen 10 mg/dL (8-23); Calcium 10.8 mg/dL (8.5-10.5); Carbon Dioxide 28 mmol/L (22-29); Chloride 107 mmol/L (98-107); Globulin 2.7 g/dL (1.3-4.6); Glucose 100 mg/dL (65-115); Osmolality Calculated 293 mOsm/kg (285-295); Potassium 4.2 mmol/L (3.5-5.1); Sodium 142 mmol/L (136-145); Total Bilirubin 0.5 mg/dL (0.15-1.2); Total Protein 6.9 g/dL (6.6-8.7)
[2024-08-27 11:10] LABS: 25 Hydroxy Vitamin D 29 ng/mL (30-100)
[2024-08-27 11:15] LABS: Parathyroid Hormone 136.2 pg/mL (15-65)
[2024-08-27 11:23] LABS: Calcium 10.9 mg/dL (8.5-10.5)
== END 2024-09-21 23:59 | disposition home or self-care (01) ==
PROVIDERS: Nurse Practitioner Family; PCP Nurse Practitioner Family; Visit Provider Internal Medicine
DX: C50.111 Malignant neoplasm of central portion of right female breast (principal); Z17.0 Estrogen receptor positive status [ER+]; E83.52 Hypercalcemia; M85.80 Other specified disorders of bone density and structure, unspecified site; R03.0 Elevated blood-pressure reading, without diagnosis of hypertension; Z79.811 Long term (current) use of aromatase inhibitors
CPT/HCPCS: 36415; 80053; 82306; 82310; 83970; 85025; 99213

== ENCOUNTER 2024-08-28 13:38 | Outpatient (CLI) | payer MEDICARE, SELFPAY ==
--- NOTE | 2024-08-28 13:00 | XR_ITS ---
WS: [id number] SCREENING DEXA SCAN [employer] CLINICAL INFORMATION: AI use and post menopausal COMPARISON: 2022 FINDINGS: The L1-L4 bone mineral density measures 0.944 g/cm2. This corresponds to a T score score of -2.0 and Z score of -1.4. Left femoral neck bone mineral density measures 0.858 g/cm2. This corresponds to a T score of -1.2 and Z score of -0.5. Right femoral neck bone mineral density measures 0.879 g/cm2. This corresponds to a T score -1.0of and Z score of -0.3. Mean femoral neck bone mineral density measures 0.868 g/cm2. This corresponds to a T score of -1.1 and Z score of -0.4. XR/XR DEXA axial skeleton* 55572 IMPRESSION: Osteopenia lumbar spine. Osteopenia femoral necks. Patient's FRAX calculated 10 year probability for major osteoporotic fracture i s 12.9% and osteoporotic hip fracture is 3.0%. Lumbar spine bone mineral density increased 2.1% Femoral necks bone mineral density decreased -3.1%
== END 2024-08-28 13:39 | disposition home or self-care (01) ==
LOC: RAD 13:40
PROVIDERS: PCP Nurse Practitioner Family; Visit Provider Nurse Practitioner Family
DX: Z79.811 Long term (current) use of aromatase inhibitors (principal); M85.88 Other specified disorders of bone density and structure, other site; Z78.0 Asymptomatic menopausal state; E83.52 Hypercalcemia
CPT/HCPCS: 77080

== ENCOUNTER → 2024-09-01 10:49 | Outpatient (BNVA) | payer MEDICARE, SELFPAY | PROVIDERS: PCP Nurse Practitioner Family; Referring Provider Nurse Practitioner Family; Visit Provider Nurse Practitioner Family | DX: L82.1 Other seborrheic keratosis (principal); D18.01 Hemangioma of skin and subcutaneous tissue; L57.8 Other skin changes due to chronic exposure to nonionizing radiation; L81.4 Other melanin hyperpigmentation; D48.5 Neoplasm of uncertain behavior of skin; L57.0 Actinic keratosis | CPT/HCPCS: 11102; 17000; 99203 ==

== ENCOUNTER 2024-09-09 06:51 | Day surgery (SDC) | payer MEDICARE, SELFPAY ==
[2024-09-09 07:02] VITALS: BP 173/84; PULSE 73; RESP 18; TEMP 37.1; O2SAT 97; BMI 36.9
[2024-09-09] MEDS: sodium chloride 0.9% 1,000 ML 15 ML IV (07:25)
--- NOTE | 2024-09-09 07:26 | P.HPUD_ITS ---
Surgery/Procedure H&P Update DATE OF PROCEDURE: September 09, 2024 DATE H&P PERFORMED: 08/18/24 H&P UPDATE INFORMATION: I have reviewed H&P completed within last 30 days, I have examined patient prior to procedure, No changes to prior documentation, H&P is in [facility] EMR on date indicated and Risks and benefits of the procedure reviewed PLANNED PROCEDURE: Operation Date: 09/09/24 08:20 Proposed Procedures p Colonoscopy 84844 G0105, Z12.11(Not Applicable) - Aaron Orozco MD
--- NOTE | 2024-09-09 07:35 | ANES.PREANE2 ---
Pre-Anesthetic Assessment Height/Weight: Height 1.65 m Weight 100.698 kg Temp Pulse Resp BP Pulse Ox O2 Del Method 98.8 F 73 18 173/84 97 Room Air 09/09/24 07:02 09/09/24 07:02 09/09/24 07:02 09/09/24 07:02 09/09/24 07:02 09/09/24 07:02 Operation Date: 09/09/24 08:20 Proposed Procedures p Colonoscopy 60751 G0105, Z12.11(Not Applicable) - Aaron Orozco MD Familial anesthetic complications: None Was Beta Anjana taken within 24 hours: N/A Was Clonidine taken within 24 hours: N/A Last intake: Intake Last Liquid Date 09/08/24 Last Liquid Time 22:00 Last Solid Date 09/07/24 Last Solid Time 19:00 Social No alcohol and No tobacco Exam alert, oriented x 3, clear to auscultation bilaterally and regular rate & rhythm Airway Submandibular: within normal limits Cervical ROM: Other (Decreased ROM) Mallampati: Class II Dentition: full History/ROS No significant history except as noted and No significant complaints Pulmonary Cough CV/HEM Hypertension Hx kidney stones Hepatic None reported GI Gastroesophageal Reflux Disease (Depends on food intake) Metabolic Diabetes Mellitus (Pre-diabetic) Musc/skel Osteoarthritis/DJD Neuropsych Anxiety, Depression and Transient Ischemic Attack (Around 15 years ago, never diagnosed) Anesthetic Plan ASA status: 3 Anesthesia: Anesthesia Evaluation, General and MAC Risk of > 500 ml blood loss (7ml/kg in children): No Medications/Allergies Home Medications ?Medication ?Instructions ?Recorded ?Confirmed ?Last Taken ?Type potassium gluconate 595 mg (99 mg) 595 mg PO DAILY 07/12/22 09/07/24 09/08/24 07:00 History tablet vitamin B complex 1 tab PO DAILY 07/12/22 09/07/24 09/08/24 07:00 History hydrochlorothiazide 12.5 mg capsule 12.5 mg PO DAILY 06/18/24 09/07/24 09/08/24 07:00 History polyethylene glycol 3350 17 17 g PO BID 5 days #170 grams 08/18/24 09/07/24 09/08/24 07:00 Rx gram/dose oral powder (Miralax) letrozole 2.5 mg tablet (Femara) 2.5 mg PO DAILY 09/07/24 09/07/24 09/08/24 07:00 History magnesium glycinate 100 mg (as 300 mg PO DAILY 09/07/24 09/07/24 09/08/24 07:00 History glycinate) tablet Allergies Allergy/AdvReac Type Severity Reaction Status Date / Time No Known Allergies Allergy Verified 09/09/24 06:59 Current Medications Generic Name Dose Route Start Last Admin Trade Name Freq PRN Reason Stop Dose Admin Sodium Chloride 1,000 mls @ 15 mls/hr 09/09/24 06:53 09/09/24 07:25 Sodium Chloride 0.9% IV 09/10/24 06:52 15 mls/hr .Q24H PRN Administration COLONOSCOPY FLUIDS PFSH Anesthesia Medical History Hypothyroidism Prediabetes History of endometrial cancer Breast cancer Hypertension Surgical History History of lumpectomy of right breast (05/22/22) Re-excision lumpectomy History of hysterectomy with bilateral oophorectomy (02/28/18) Robotic assisted modified radical total laparoscopic hysterectomy, bilateral salpingo-oophorectomy, and sentinel node dissection in the pelvis bilaterally History of left breast biopsy In 1975 for benign cyst History of lumpectomy of right breast (05/04/22) Right breast lumpectomy with axillary sentinel lymph node biopsy and left breast biopsy Family History Sister Anesthesia complication Clotting disorder CAD (coronary artery disease) Diabetes Hypertension Endometrial cancer Mother Clotting disorder CAD (coronary artery disease) Dementia Diabetes Brother Cancer 3 brothers with prostate cancer Hypertension Stroke Father Lung disease Smoker Other Hyperlipidemia Denies family history of Psychiatric illness Chronic kidney disease (CKD) Suicide Bleeding disorder Social History (Updated 08/27/24 @ 10:53 by Favio Gregory) Smoking and tobacco/nicotine status: never used tobacco/nicotine Alcohol intake: never
[2024-09-09 08:32] VITALS: BP 154/80; PULSE 62; RESP 14; TEMP 25.4; O2SAT 96
[2024-09-09 09:06] VITALS: BP 181/74; PULSE 62; RESP 16; O2SAT 97
--- NOTE | 2024-09-09 09:13 | ANE.PACU2 ---
Inpatient post-anesthesia follow up: Airway intact: Yes Vital signs: Temperature 77.8 F Pulse Rate 62 Respiratory Rate 16 Blood Pressure 181/74 Pulse Oximetry 97 Oxygen Delivery Me thod Room Air Oxygen Flow Rate Fraction of Inspir ed Oxygen Hydration adequate: Yes Nausea and vomiting: No Pain level: 1 Mental status: Baseline
== END 2024-09-09 09:13 | disposition home or self-care (01) ==
PROVIDERS: PCP Nurse Practitioner Family; Visit Provider Surgery
PROC: 0DJD8ZZ Inspection of Lower Intestinal Tract, Via Natural or Artificial Opening Endoscopic (ICD-10-PCS; CPT 45378; principal; 2024-09-09 08:20)
DX: Z12.11 Encounter for screening for malignant neoplasm of colon (principal); D12.2 Benign neoplasm of ascending colon; K62.1 Rectal polyp; K64.4 Residual hemorrhoidal skin tags; K21.9 Gastro-esophageal reflux disease without esophagitis; R73.03 Prediabetes; I10 Essential (primary) hypertension; M19.90 Unspecified osteoarthritis, unspecified site; Z79.899 Other long term (current) drug therapy; E03.9 Hypothyroidism, unspecified; Z85.3 Personal history of malignant neoplasm of breast; Z85.42 Personal history of malignant neoplasm of other parts of uterus
CPT/HCPCS: 45380; 88305; J2704; J7030

== ENCOUNTER → 2024-09-22 11:12 | Outpatient (BNVA) | payer MEDICARE, SELFPAY | PROVIDERS: PCP Nurse Practitioner Family; Visit Provider Surgery | DX: Z09 Encounter for follow-up examination after completed treatment for conditions other than malignant neoplasm (principal) | CPT/HCPCS: 99213 ==

== ENCOUNTER → 2024-12-31 08:50 | Outpatient (BNVA) | payer MEDICARE, SELFPAY | PROVIDERS: PCP Nurse Practitioner Family; Visit Provider Internal Medicine | DX: E21.0 Primary hyperparathyroidism (principal); Z87.442 Personal history of urinary calculi | CPT/HCPCS: 99204 ==

== ENCOUNTER 2025-01-14 13:15 | Oncology outpatient (recurring) (ONCR) | payer MEDICARE, SELFPAY ==
[2025-01-14 13:33] LABS: Hematocrit 48.6 % (36-47); Hemoglobin 16.10 g/dL (11.27-16.99); Mean Corpuscular HGB Conc 33.1 g/dL (30-55); Mean Corpuscular Hemoglobin 29.2 pg (27-33); Mean Corpuscular Volume 88.0 fl (85-98); Nucleated Red Blood Cells % 0 %; Platelet Count 160 10^3/cmm (157-399); Red Blood Count 5.52 10^6/uL (3.85-5.65); White Blood Count 6.92 10^3/uL (3.29-11.43)
[2025-01-14 13:49] LABS: Alanine Aminotransferase 17 U/L (0-33); Albumin Level 4.4 g/dL (3.5-5.2); Alkaline Phosphatase 117 U/L (35-105); Anion Gap 11.2 (5-19); Aspartate Amino Transferase 16 U/L (0-32); Blood Urea Nitrogen 11 mg/dL (8-23); Calcium 11.3 mg/dL (8.5-10.5); Carbon Dioxide 30 mmol/L (22-29); Chloride 103 mmol/L (98-107); Globulin 2.9 g/dL (1.3-4.6); Glucose 102 mg/dL (65-115); Osmolality Calculated 290 mOsm/kg (285-295); Potassium 4.2 mmol/L (3.5-5.1); Sodium 140 mmol/L (136-145); Total Protein 7.3 g/dL (6.6-8.7)
== END 2025-01-22 23:59 | disposition home or self-care (01) ==
PROVIDERS: Nurse Practitioner Family; PCP Nurse Practitioner Family; Visit Provider Internal Medicine
DX: C50.111 Malignant neoplasm of central portion of right female breast (principal); Z79.899 Other long term (current) drug therapy; E83.52 Hypercalcemia; M85.80 Other specified disorders of bone density and structure, unspecified site; R03.0 Elevated blood-pressure reading, without diagnosis of hypertension
CPT/HCPCS: 36415; 80053; 82306; 83615; 85025; 99214

== ENCOUNTER 2025-02-04 13:15 | Oncology outpatient (recurring) (ONCR) | payer MEDICARE, SELFPAY ==
--- NOTE | 2025-02-04 13:15 | MM_ITS ---
WS: [id number] BILATERAL 3D TOMOSYNTHESIS DIGITAL DIAGNOSTIC MAMMOGRAPHY WITH CAD CLINICAL INFORMATION: right breast mass 2 o'oclock at edge of aereola HISTORY: History of RIGHT lumpectomy COMPARISON: 2021 TECHNIQUE: Bilateral CC, MLO, and ML views. FINDINGS: The breasts are composed of heterogeneous fibroglandular density, which can limit the detection of small underlying mass lesions. Postoperative changes lumpectomy RIGHT breast with numerous surgical clips. Ultrasound of this area is pending. A few incidental calcifications both breasts. ULTRASOUND BREAST RIGHT TECHNIQUE: Ultrasound right breast focused area of concern. CLINICAL INFORMATION: right breast mass 2 o'oclock at edge of aereola FINDINGS: Ultrasound RIGHT breast at the lumpectomy site demonstrates dense underlying postoperative scar tissue. Additional dense shadowing from bulky surgical clips limits evaluation due to dense shadowing. However, no visualized cystic or solid lesions. No visualized suspicious lesions to target for biopsy at the lumpectomy site. MM/MM diag BI tomosynthesis [id number] IMPRESSION: DENSITY: The breasts are heterogeneously dense, which may obscure small masses. BI-RADS: 2 - Benign FOLLOW UP: 1 Year Follow-up Recommend return to annual diagnostic mammography.
--- NOTE | 2025-02-04 13:22 | US_ITS ---
WS: [id number] BILATERAL 3D TOMOSYNTHESIS DIGITAL DIAGNOSTIC MAMMOGRAPHY WITH CAD CLINICAL INFORMATION: right breast mass 2 o'oclock at edge of aereola HISTORY: History of RIGHT lumpectomy COMPARISON: 2021 TECHNIQUE: Bilateral CC, MLO, and ML views. FINDINGS: The breasts are composed of heterogeneous fibroglandular density, which can limit the detection of small underlying mass lesions. Postoperative changes lumpectomy RIGHT breast with numerous surgical clips. Ultrasound of this area is pending. A few incidental calcifications both breasts. ULTRASOUND BREAST RIGHT TECHNIQUE: Ultrasound right breast focused area of concern. CLINICAL INFORMATION: right breast mass 2 o'oclock at edge of aereola FINDINGS: Ultrasound RIGHT breast at the lumpectomy site demonstrates dense underlying postoperative scar tissue. Additional dense shadowing from bulky surgical clips limits evaluation due to dense shadowing. However, no visualized cystic or solid lesions. No visualized suspicious lesions to target for biopsy at the lumpectomy site. US/US breast RT limited* [id number] IMPRESSION: DENSITY: The breasts are heterogeneously dense, which may obscure small masses. BI-RADS: 2 - Benign FOLLOW UP: 1 Year Follow-up Recommend return to annual diagnostic mammography.
== END 2025-02-21 23:59 | disposition home or self-care (01) ==
LOC: ONCMED 13:16
PROVIDERS: PCP Nurse Practitioner Family; Visit Provider Internal Medicine
DX: C50.111 Malignant neoplasm of central portion of right female breast (principal); N63.12 Unspecified lump in the right breast, upper inner quadrant; N64.89 Other specified disorders of breast
CPT/HCPCS: 76642; 77062; G0279